=== PATIENT | male | born 1950 | race Caucasian/White ===

== ENCOUNTER → 2017-08-28 | Outpatient (CLI) | payer OTHER ==
[~2017-08-28] MED LIST: ASPIR-LOW81 MG PO; ATORVASTATIN CA40 MG PO; BRILINTA90 MG PO; CLARITIN,ALAVAR10 MG PO; COZAAR25 MG PO; FLOMAX0.4 MG PO; LIPITOR40 MG PO; LO-DOSE ASPIRIN81 M1 PO; LUNESTA3 MG PO; PREDNISONE10 MG PO; PRINIVIL20 MG PO; TRAMADOL HCL50 MG PO; TYLENOL REGULA325 MG PO; ULTRAM50 MG PO
== END | disposition home or self-care (01) ==
LOC: EKG 13:00
DX: Z02.71 Encounter for disability determination (principal)
CPT/HCPCS: 93307

== ENCOUNTER 2017-09-05 15:09 | Observation (INO) | payer BC ==
[~2017-09-05] VITALS: Ht 175.3 cm; Wt 71.5 kg
[~2017-09-05 15:09] MED LIST changes: -CLARITIN,ALAVAR10 MG PO; -COZAAR25 MG PO; -PREDNISONE10 MG PO; -ULTRAM50 MG PO
[2017-09-05 15:53] LABS: HEMATOCRIT 43.7 % (38.0-50.0); HEMOGLOBIN 15.2 G/DL (12.5-16.6); MCH 32.1 PG (29.0-34.0); MCHC 34.8 G/DL (30.0-36.0); MCV 92.2 FL (86-99); PLATELET COUNT 129 K/uL (156-360); RBC DIS.WIDTH-CV 14.1 % (11.8-14.6); RBC DIS.WIDTH-SD 48.2 % (39-53); RED BLOOD COUNT 4.74 M/uL (4.00-5.50); WHITE BLOOD COUNT 11.4 K/uL (4.1-10.2)
[2017-09-05 16:00] LABS: INTER. NORMALIZED RATIO 1.1
[2017-09-05 16:08] LABS: ALBUMIN 4.2 g/dL (3.2-4.8); CHLORIDE 107 mEq/L (99-109); POTASSIUM 4.4 mEq/L (3.7-5.4); SODIUM 138 mEq/L (136-147)
[2017-09-05 16:10] LABS: GLUCOSE 81 mg/dL (70-99); TOTAL PROTEIN 7.2 g/dL (6.4-8.3)
[2017-09-05 16:12] LABS: TOTAL BILIRUBIN 1.1 mg/dL (0.0-1.0)
[2017-09-05 16:14] LABS: ALKALINE PHOSPHATASE 60 IU/L (3-129); CREATININE 0.8 mg/dL (0.6-1.3); GFR ESTIMATE (CALCULATED) > 59 mL/min/ (58.99-99999)
[2017-09-05 16:15] LABS: UREA NITROGEN (BUN) 12 mg/dL (9-23)
[2017-09-05 16:16] LABS: AST (GOT) 18 IU/L (2-34)
[2017-09-05 16:17] LABS: ALT (GPT) 14 IU/L (3-49)
[2017-09-05] MEDS ORDERED: COZAAR25 MG PO (19:54)
[2017-09-06 00:50] VITALS: BP 137/61
[2017-09-06 04:14] VITALS: BP 107/53
[2017-09-06 05:54] LABS: HEMATOCRIT 43.1 % (38.0-50.0); HEMOGLOBIN 14.1 G/DL (12.5-16.6); MCH 30.8 PG (29.0-34.0); MCHC 32.7 G/DL (30.0-36.0); MCV 94.1 FL (86-99); PLATELET COUNT 133 K/uL (156-360); RBC DIS.WIDTH-CV 14.2 % (11.8-14.6); RBC DIS.WIDTH-SD 48.7 % (39-53); RED BLOOD COUNT 4.58 M/uL (4.00-5.50); WHITE BLOOD COUNT 12.8 K/uL (4.1-10.2)
[2017-09-06 06:17] LABS: CHLORIDE 105 MEQ/L (99-109); CREATININE 0.9 MG/DL (0.6-1.3); GFR ESTIMATE (CALCULATED) > 59 mL/min/ (58.99-99999); POTASSIUM 3.9 MEQ/L (3.7-5.4); SODIUM 139 MEQ/L (136-147); UREA NITROGEN (BUN) 16 mg/dL (9-23)
[2017-09-06 06:19] LABS: GLUCOSE 135 mg/dL (70-99)
[2017-09-06 07:45] VITALS: BP 115/60
[2017-09-06] MEDS ORDERED: PREDNISONE10 MG PO (12:44)
[2017-09-06 12:46] VITALS: BP 128/54
== END 2017-09-06 13:42 | disposition home or self-care (01) ==
LOC: EME 15:09 → EDOF 22:36 → ENRESERV 22:44 → 5WEST 09-06 00:36
PROVIDERS: Emergency Medicine; Internal Medicine
DX: T78.3XXA Angioneurotic edema, initial encounter (principal); T78.40XA Allergy, unspecified, initial encounter; R22.0 Localized swelling, mass and lump, head; I10 Essential (primary) hypertension; I25.10 Atherosclerotic heart disease of native coronary artery without angina pectoris; N40.0 Benign prostatic hyperplasia without lower urinary tract symptoms; M19.90 Unspecified osteoarthritis, unspecified site; H93.19 Tinnitus, unspecified ear; G47.00 Insomnia, unspecified; Z95.810 Presence of automatic (implantable) cardiac defibrillator; Z95.5 Presence of coronary angioplasty implant and graft; Z87.891 Personal history of nicotine dependence; Z79.82 Long term (current) use of aspirin; Z82.49 Family history of ischemic heart disease and other diseases of the circulatory system; Z88.1 Allergy status to other antibiotic agents
CPT/HCPCS: 70360; 70498; 71275; 80048; 80053; 85027; 85610; 99202; 99281; 99285; G0378; J1644; J2920; J2930; J7030; J7040; S0028

== ENCOUNTER 2017-09-08 13:04 | Emergency (ER) | payer BC, OTHER ==
[~2017-09-08] VITALS: Ht 175.3 cm; Wt 71.7 kg
[~2017-09-08 13:04] MED LIST changes: +COZAAR25 MG PO; +PREDNISONE10 MG PO
[2017-09-08 14:05] LABS: BASOPHIL (%) 0.3 % (0-1); EOSINOPHIL (%) 0.7 % (0-5); EOSINOPHIL COUNT 0.1 K/uL (0-0.3); HEMATOCRIT 38.8 % (38.0-50.0); HEMOGLOBIN 13.2 G/DL (12.5-16.6); IMMATURE GRANULOCYTE (%) 0.4 % (0.0-0.7); LYMPHOCYTE COUNT 1.8 K/uL (1.0-2.8); MCH 32.1 PG (29.0-34.0); MCV 94.4 FL (86-99); MONOCYTE (%) 5.4 % (3-12); MONOCYTE COUNT 0.7 K/uL (0-0.8); NEUTROPHIL (%) 79.2 % (45-76); NEUTROPHIL COUNT 10.4 K/uL (1.8-6.4); PLATELET COUNT 106 K/uL (156-360); RBC DIS.WIDTH-CV 14.5 % (11.8-14.6); RBC DIS.WIDTH-SD 49.7 % (39-53); RED BLOOD COUNT 4.11 M/uL (4.00-5.50); WHITE BLOOD COUNT 13.1 K/uL (4.1-10.2)
[2017-09-08 14:10] LABS: INTER. NORMALIZED RATIO 1.1
[2017-09-08 14:12] LABS: ALBUMIN 3.9 g/dL (3.2-4.8)
[2017-09-08 14:13] LABS: CHLORIDE 106 mEq/L (99-109); POTASSIUM 3.5 mEq/L (3.7-5.4); SODIUM 141 mEq/L (136-147)
[2017-09-08 14:13] LABS: PTT 22.1 SEC (25-37)
[2017-09-08 14:15] LABS: GLUCOSE 104 mg/dL (70-99); TOTAL PROTEIN 6.4 g/dL (6.4-8.3)
[2017-09-08 14:18] LABS: ALKALINE PHOSPHATASE 45 IU/L (3-129); TOTAL BILIRUBIN 0.8 mg/dL (0.0-1.0)
[2017-09-08 14:19] LABS: CREATININE 0.8 mg/dL (0.6-1.3); GFR ESTIMATE (CALCULATED) > 59 mL/min/ (58.99-99999)
[2017-09-08 14:20] LABS: AST (GOT) 22 IU/L (2-34); UREA NITROGEN (BUN) 15 mg/dL (9-23)
[2017-09-08 14:22] LABS: ALT (GPT) 19 IU/L (3-49)
[2017-09-08] MEDS ORDERED: CLARITIN,ALAVAR10 MG PO (16:50)
[2017-09-08] MEDS ORDERED: ULTRAM50 MG PO ×2 (17:14→17:15)
[2017-09-08 19:34] VITALS: BP 128/75
== END 2017-09-08 19:45 | disposition short-term general hospital (02) ==
LOC: EME 13:04
PROVIDERS: Emergency Medicine
DX: I82.A12 Acute embolism and thrombosis of left axillary vein (principal); I82.B12 Acute embolism and thrombosis of left subclavian vein; I87.1 Compression of vein; R60.0 Localized edema; Z95.0 Presence of cardiac pacemaker; I25.2 Old myocardial infarction; Z79.82 Long term (current) use of aspirin; Z88.1 Allergy status to other antibiotic agents; F17.200 Nicotine dependence, unspecified, uncomplicated
CPT/HCPCS: 71260; 80053; 85025; 85610; 85730; 99281; 99285; J7040